=== PATIENT | female | born 2000 | race African-American/Black ===

== ENCOUNTER 2021-09-02 20:54 | Emergency (ER) | payer OTHER ==
[~2021-09-02] VITALS: Ht 160 cm; Wt 87.5 kg
[2021-09-02 20:57] VITALS: BP 133/60
[2021-09-02 21:16] LABS: URINE BILIRUBIN NEGATIVE (Negative); URINE BLOOD NEGATIVE (Negative); URINE CLARITY CLEAR; URINE COLOR YELLOW; URINE GLUCOSE-RANDOM* NEGATIVE (Negative); URINE KETONES NEGATIVE (Negative); URINE LEUKOCYTES-REFLEX NEGATIVE (Negative); URINE NITRITE-REFLEX NEGATIVE (Negative); URINE PROTEIN (DIPSTICK) NEGATIVE (Negative); URINE SPECIFIC GRAVITY >= 1.030 (1.005-1.035); URINE UROBILINOGEN 0.2 E.U./dl (0.2-1.0)
[2021-09-02] MEDS ORDERED: ONDANSETRON HCL4 M2 PO (21:32)
[2021-09-02] MEDS ORDERED: ZOFRAN 4 MG ORAL4 MG PO (21:38)
== END 2021-09-02 21:43 | disposition home or self-care (01) ==
LOC: ER 20:54
PROVIDERS: Nurse Practitioner
DX: R11.2 Nausea with vomiting, unspecified (principal); N64.4 Mastodynia; Z98.890 Other specified postprocedural states